=== PATIENT | female | born 1955 | race Caucasian/White ===

== ENCOUNTER 2017-11-19 17:57 | Observation (INO) | payer OTHER, SELFPAY ==
[2017-11-19 18:10] VITALS: BP 122/63; PULSE 75; RESP 14; TEMP 36.2; O2SAT 99
[2017-11-19 18:17] VITALS: PULSE 75; RESP 14; TEMP 36.2; O2SAT 99
[2017-11-19 18:36] VITALS: BP 126/60; PULSE 73; RESP 16; O2SAT 97
--- NOTE | 2017-11-19 18:38 | ED_ITS ---
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 She states she remembered this episode. She states that she knew that she was having problems speaking. She states that she could think of the words and she thought that she was talking but she was told that her words were slurred. She states that the entire event lasted less than 15 min. Denies any other symptoms at the time. Completely resolved afterwards. Patient does have a complicated neurologic history. 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 She states that they follow this tumor and has not changed. She states that her neurologist does not know what the tumor is. She states she was also at that time diagnosed with epilepsy however has not had a seizure since 2005. She is on gabapentin 600 mg 3 times a day. She states she has been weaning down off this medication under the direction of her neurologist. Patient denies ever having a stroke. No cardiac history. Related Data Allergies Allergy/AdvReac Type Severity Reaction Status Date / Time carbamazepine [From Tegretol] Allergy Rash Verified 11/19/17 19:54 erythromycin base AdvReac Vomiting Verified 11/19/17 19:54 Review of Systems Constitutional Denies chills, Denies fever(s), Reports headache(s), Denies lethargy and Denies weakness Eyes Denies change in vision, Denies diplopia, Denies eye discharge, Denies irritation and Denies loss of vision ENT Ears, Nose, Mouth, and Throat: Denies change in voice, Denies dysphagia, Denies vertigo, Denies dizziness, Denies dry mouth, Reports headache(s), Denies hoarseness, Denies disequilibrium, Denies sinus pain, Denies sinus pressure, Denies sore throat and Denies throat swelling Comments: Slurred speech Cardiovascular Denies chest pain, Denies syncope, Denies irregular heart rhythm, Denies lightheadedness, Denies palpitations, Denies dyspnea, Denies dyspnea on exertion and Denies orthopnea Respiratory Denies cough, Denies dyspnea, Denies dyspnea on exertion and Denies wheezing Gastrointestinal Gastrointestinal: Denies dysphagia, Denies diarrhea, Denies nausea and Denies vomiting Genitourinary Denies hematuria, Denies flank pain, Denies urinary incontinence and Denies urinary urgency Musculoskeletal Denies back pain, Denies muscle weakness, Denies numbness and Denies tingling Integumentary/Breasts Denies pruritus, Denies erythema, Denies rash and Denies wounds Neurologic Denies vertigo, Denies dizziness, Denies syncope, Reports headache(s), Denies loss of vision, Denies numbness, Denies tingling, Denies disequilibrium and Denies weakness Endocrine Denies palpitations Hematologic/Lymphatic Denies easy bruising Allergic/Immunologic Denies throat swelling and Denies wheezing Exam Initial Vital Signs Initial Vital Signs: Vital Signs Temperature 97.1 F L 11/19/17 18:10 Pulse Rate 75 11/19/17 18:10 Respiratory Rate 14 11/19/17 18:10 Blood Pressure 122/63 H 11/19/17 18:10 Pulse Oximetry 99 11/19/17 18:10 Const General: cooperative and well developed Nutritional Appearance: well nourished Orientation: alert, awake, oriented x3 and not confused [facility] Head: normocephalic and atraumatic Ears: external ears normal and TM's normal bilaterally Nose: external nose normal and No nasal discharge Face and sinus: sinuses nontender, face symmetric, no sinus tenderness and No dry mucous membranes Mouth: oral mucosae normal and moist mucous membranes Teeth and gingiva: dentition normal Throat: tonsils normal and uvula midline Resp Effort & Inspection: normal respiratory effort, able to speak in complete sentences, no respiratory distress and no use of accessory muscles Auscultation: clear to auscultation bilaterally, no rales, no rhonchi and no wheezes Cardio Rate: regular rate Rhythm: regular rhythm Heart Sounds: no click, no gallops, no murmurs and no rubs Pulses: normal peripheral pulses GI Inspection: non-distended Palpation: soft, no hepatosplenomegaly, No guarding, No pulsatile mass and No tender Auscultation: normal bowel sounds Skin General: no rashes or lesions noted, No jaundice and No petechiae Neuro General: alert, oriented x3, gait normal and no focal motor deficits Cranial Nerves: CN's II-XI intact bilaterally Cognition: normal cognition Speech: speech normal, speech normal, no expressive aphasia and no receptive aphasia Motor: muscle tone normal throughout Sensory Exam: no sensory deficits noted Extrem General: full ROM, no clubbing, cyanosis or edema, no pedal edema and no calf tenderness Course Orders Ordered: ED Orders 11/19/17 18:39 CT head/brain wo con Stat 11/19/17 19:00 EKG-12 Lead Stat 11/19/17 19:10 Basic Metabolic Panel Stat Complete Blood Count AUTO DIFF Stat Partial Thromboplastin Time Stat Prothrombin Time INR Stat Discontinued Medications Aspirin (Aspirin Ec) 325 mg PO NOW ONE Stop: 11/19/17 18:40 Last Admin: 11/19/17 19:53 Dose: Aspirin (Aspirin Chew) 324 mg PO NOW ONE Stop: 11/19/17 19:53 Last Admin: 11/19/17 19:52 Dose: 324 mg Vital Signs - 8 hr 11/19/17 18:10 11/19/17 18:17 11/19/17 18:36 Temperature 97.1 F L 97.1 F L Pulse Rate 75 75 73 Respiratory Rate 14 14 16 Blood Pressure [Left Arm] 122/63 H 126/60 H Pulse Oximetry 99 99 97 11/19/17 19:39 Temperature 97.9 F Pulse Rate 79 Respiratory Rate 16 Blood Pressure [Left Arm] 106/50 L Pulse Oximetry 100 MDM - Altered Mental Status Lab Data Attestation: I reviewed the patient's lab results. Result diagrams: 11/19/17 19:10 11/19/17 19:10 Lab Results 11/19/17 11/19/17 11/19/17 Range/Units 19:10 19:10 19:10 WBC 9.1 (4.5-11.0) X10^3/uL RBC 5.16 (4.0-5.2) X10^6/uL Hgb 15.9 (12.0-16.0) g/dL Hct 46.5 H (36-46) % MCV 90.1 (80-100) fL MCH 30.8 (26-34) PG MCHC 34.2 (30-36) % RDW 13.6 (11.6-14.8) % Plt Count 295 (150-400) X10^3/uL Neut % (Auto) 62.5 (50-75) % Lymph % (Auto) 28.9 (25-40) % Stewart % (Auto) 4.2 (3-14) % Eos % (Auto) 3.3 (2-4) % Baso % (Auto) 1.1 (0-2) % Neut # (Auto) 5700 (7891-7558) /uL PT 11.3 (10.1-12.7) SECONDS INR 1.0 (0.9-1.3) APTT 36 (26.4-36.2) SECONDS Sodium 141 (137-145) mmol/L Potassium 3.8 (3.4-5.1) mmol/L Chloride 102 (98-107) mmol/L Carbon Dioxide 28 (22-32) mmol/L BUN 10 (7-17) mg/dL Creatinine 0.40 L (0.52-1.04) mg/dL Estimated GFR > 60.0 (>60) mL/min BUN/Creatinine Ratio 25.0 H (6-22) Glucose 100 (80-110) mg/dL Calcium 9.2 (8.4-10.2) mg/dL Imaging Data CT scan - head: Radiologist's impression: PROCEDURE: CT HEAD/BRAIN WO CON INDICATIONS: TIA TECHNIQUE: Noncontrast 4.5 mm thick angled axial sections acquired from the foramen magnum to the vertex, with coronal and sagittal reformats. For radiation dose reduction, the following was used: automated exposure control, adjustment of mA and/or kV according to patient size. COMPARISON: None. FINDINGS: Image quality: Excellent. CSF spaces: Basal cisterns are patent. No extra-axial fluid collections. The ventricles are symmetric in size and shape. Brain: No intracranial bleeds or masses. There is cerebral volume loss for age , with resultant ventricular and sulcal prominence. There are periventricular and deep white matter chronic small vessel ischemic changes. There is intracranial internal carotid artery atherosclerosis. Skull and face: Calvarium and visualized facial bones appear intact, without suspicious lesions. Sinuses: Visualized sinuses and mastoids are clear. IMPRESSION: No acute intracranial abnormality. Dictated by: Cj Erickson M.D. on 11/19/2017 at 19:54 ECG Data Attestation: I personally reviewed and interpreted this ECG as follows: Prior ECG tracings: not available for review Interpretation: Sinus rhythm Ventricular rate is 62 Normal axis Normal intervals Normal QRS No ST T wave changes MDM Narrative Medical decision making narrative: Patient with history and physical exam concerning for TIA. Has a normal neurologic exam currently. Patient was given an aspirin here in the emergency department. The symptoms that she describes were not consistent with a seizure. She states she has not had a seizure since 2005. The brain tumor that the patient states she was diagnosed with back in 2003 was not seen on the head CT today. I did discuss this with the patient. Discussed patient with Dr. Argueta who admit under observation status for TIA workup. Discharge Plan Departure Patient Disposition: Admitted as Observation Clinical Impression: Brain TIA
[2017-11-19 19:21] LABS: Add Manual Diff / Slide Review NO; Basophils Percent Auto 1.1 % (0-2); Eosinophils Percent Auto 3.3 % (2-4); Hematocrit 46.5 % (36-46); Hemoglobin 15.9 g/dL (12.0-16.0); Lymphocytes Percent Auto 28.9 % (25-40); Mean Corpuscular HGB Conc 34.2 % (30-36); Mean Corpuscular Hemoglobin 30.8 PG (26-34); Mean Corpuscular Volume 90.1 fL (80-100); Monocytes Percent Auto 4.2 % (3-14); Neutrophils Absolute Auto 5700 /uL (3000-5900); Neutrophils Percent Auto 62.5 % (50-75); Platelet Count 295 X10^3/uL (150-400); Red Blood Cell Count 5.16 X10^6/uL (4.0-5.2); Red Cell Distribution Width 13.6 % (11.6-14.8); White Blood Cell Count 9.1 X10^3/uL (4.5-11.0)
[2017-11-19 19:26] LABS: Prothrombin Time 11.3 SECONDS (10.1-12.7)
[2017-11-19 19:29] LABS: PTT Partial Thromboplastin Tim 36 SECONDS (26.4-36.2)
[2017-11-19 19:37] LABS: Blood Urea Nitrogen 10 mg/dL (7-17); Calcium 9.2 mg/dL (8.4-10.2); Carbon Dioxide 28 mmol/L (22-32); Chloride 102 mmol/L (98-107); Estimated Glomerular Filt Rate > 60.0 mL/min (>60); Glucose 100 mg/dL (80-110); HEMOLYSIS 34 (0-50); Potassium 3.8 mmol/L (3.4-5.1); Sodium 141 mmol/L (137-145)
[2017-11-19 19:39] VITALS: BP 106/50; PULSE 79; RESP 16; TEMP 36.6; O2SAT 100
[2017-11-19] MEDS: ASPIRIN 81 MG TAB 324 MG PO (19:52)
[2017-11-19 21:24] VITALS: BMI 21.2
[2017-11-19 21:25] VITALS: BP 118/78; PULSE 67; RESP 16; TEMP 36.8; O2SAT 96
[2017-11-19] MEDS: SODIUM CHLORIDE 0.9% 1,000 ML 100 ML IV (22:35)
[2017-11-20 00:40] VITALS: BP 104/57; PULSE 66; RESP 18; TEMP 36.6; O2SAT 98
--- NOTE | 2017-11-20 02:11 | PC.NURSE ---
assumed care of pt from outgoing shift at 2300, 6-1. rn reported pt arrived around 950, admission completed. pt complaint. pt given instructions to call staff and wait. pt compliant will continue to monitor pt for safety. pt asleep at this time. bed alarm on side rails up c2. 0050 update: pt assessment completed and charted. pt uses call light, complaint. pt up to br. pt ambulates steady gait. pt NIH 0 a this time, will continue to monitor. educated on strokes and hospital stay. bed alarm on. side rail up x2. pt belongings and call light within reach.
[2017-11-20 06:31] LABS: Cholesterol 234 mg/dL (140-199); HDL Cholesterol 42 mg/dL (40-60); LDL Cholesterol Calculated 138 mg/dL (<100); Triglycerides 268 mg/dL (35-150)
[2017-11-20 07:40] VITALS: O2SAT 94
[2017-11-20 08:24] VITALS: BP 118/73; PULSE 75; RESP 18; TEMP 36.5; O2SAT 96
[2017-11-20] MEDS: ENOXAPARIN 40 MG/0.4 ML SYRINGE SUBCUT (08:46)
[2017-11-20] MEDS: ASPIRIN EC 81 MG TABLET PO (08:46)
[2017-11-20] MEDS: SODIUM CHLORIDE 0.9% 1,000 ML 100 ML IV (08:46)
--- NOTE | 2017-11-20 10:34 | P.HP_ITS ---
History of Present Illness Chief complaint: Brain TIA Narrative: Lexi Vincent is a 61 year old female presents after an episode where she had some difficulty with speech. 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 She has a complicated history of previous seizures and history of diagnosis of a brain tumor back about 10 15 years ago. She is followed by Neurology she is on seizure medications. She has not had a seizure for several years however. No history of hypertension she does have hyperlipidemia. Patient History Medical History Epilepsy (Acute) Hx of (Acute) PTSD (post-traumatic stress disorder) (Acute) Pneumonia (Acute) Glioma (Acute) Family & Social History Social History: household members friend(s) Prior Living Arrangements House Safety & Behavioral: Feels Safe in Current No Environment Been Physically Hurt or No Threatened By a Person Suicidal Ideation Description None Suicide Plan Description No Plan Tobacco & Substance use: Tobacco type cigarettes,cannabis/marijuana Smoking Status Former smoker Smoking packs per day 0.5 alcohol intake never Substance Use Type marijuana Meds Home Medications Medication Instructions Recorded Confirmed Type gabapentin 600 mg PO TID 11/19/17 11/19/17 History simvastatin 40 mg PO QPM 11/19/17 11/19/17 History thyroid (pork) [OIL TESTER Thyroid] 90 mg PO DAILY 11/19/17 11/19/17 History valacyclovir 500 mg PO PRN PRN 11/19/17 11/19/17 History Allergies Allergy/AdvReac Type Severity Reaction Status Date / Time carbamazepine [From Tegretol] Allergy Rash Verified 11/19/17 19:54 erythromycin base AdvReac Vomiting Verified 11/19/17 19:54 Review of Systems Review of Systems All systems reviewed & are unremarkable except as noted in HPI and below Exam Vital Signs (past 8 hours): Vital Signs - 8 hr 3 11/20/17 08:24 Temperature 97.7 F Pulse Rate 75 Respiratory Rate 18 Blood Pressure 118/73 Pulse Oximetry 96 Pulse Oximetry 96 Oxygen Delivery Method Room Air Oxygen Flow Rate 0 Narrative Exam Narrative: Pleasant middle-aged female no acute distress HEENT exam unremarkable Neck is supple Lungs clear Heart regular rhythm Abdomen soft Neuro exam awake alert oriented speech normal no focal motor or sensory deficits Objective Labs Result Diagrams: 11/19/17 19:10 11/19/17 19:10 Labs: Laboratory Results - last 24 hr 11/19/17 11/19/17 11/19/17 19:10 19:10 19:10 WBC 9.1 RBC 5.16 Hgb 15.9 Hct 46.5 H MCV 90.1 MCH 30.8 MCHC 34.2 RDW 13.6 Plt Count 295 Neut % (Auto) 62.5 Lymph % (Auto) 28.9 White % (Auto) 4.2 Eos % (Auto) 3.3 Baso % (Auto) 1.1 Neut # (Auto) 5700 PT 11.3 INR 1.0 APTT 36 Sodium 141 Potassium 3.8 Chloride 102 Carbon Dioxide 28 BUN 10 Creatinine 0.40 L Estimated GFR > 60.0 BUN/Creatinine Ratio 25.0 H Glucose 100 Calcium 9.2 Triglycerides Cholesterol LDL Cholesterol, Calc HDL Cholesterol 11/20/17 05:52 WBC RBC Hgb Hct MCV MCH MCHC RDW Plt Count Neut % (Auto) Lymph % (Auto) White % (Auto) Eos % (Auto) Baso % (Auto) Neut # (Auto) PT INR APTT Sodium Potassium Chloride Carbon Dioxide BUN Creatinine Estimated GFR BUN/Creatinine Ratio Glucose Calcium Triglycerides 268 H Cholesterol 234 H LDL Cholesterol, Calc 138 H HDL Cholesterol 42 Assessment & Plan Plan: Plan: One. TIA or possible partial seizure. She has been observed her overnight at this point is stable I do not think she needs to be in the hospital any longer. I will start her on aspirin and instructed her to get back on her cholesterol medication which she had ran out of. She will follow up with her primary care doctor. I would suggest that she have a carotid ultrasound which will be scheduled as an outpatient. Quality VTE Deep Vein Thrombosis/Pulmonary Embolism Present on Admission: No
--- NOTE | 2017-11-20 11:38 | PC.NURSE ---
DISCHARGED BY MD AT [facility]. IV REMOVED. PT DRESSED. EDUCATION PROVIDED ON S/S OF STROKE, DI FOR TIA, TIA HANDOUT. OUTPATIENT ORDER GIVEN FOR CAROTID DOPPLER U/S TO BE COMPLETED WITHIN 1 WEEK. PT VERBALIZED UNDERSTANDING OF ALL. PT VERBALIZED SHE WILL MAKE DIETARY CHANGES AND START TAKING HER PRESCRIBED STATIN TO REDUCE HER CHOLESTEROL LEVEL. PT AMBULATED OUT OF HOSPITAL TO PERSONAL VEHICLE BY [employer]. DECLINED OFFER OF W/C. PT LEFT IN STABLE CONDITION.
--- NOTE | 2017-11-20 15:11 | CM.DANOTE ---
Home today w/dtr. Pt getting ready to leave when this RN OPERATING ROOM entered room. family to transport. Pt indp, works, extensive h/o neurologic f/u d/t diagnosis of brain cancer years ago. Pt expects not to drive for awhile d/t h/o seizures and wonders if this was a seizure vs TIA ? KAROLINE Dumont assisting w/DC instructions. JLathaW
== END 2017-11-20 11:30 | disposition home or self-care (01) ==
LOC: ED 20:31 → AC 21:06
PROVIDERS: Admitting Provider Internal Medicine; Emergency Provider Emergency Medicine; PCP Registered Nurse; Visit Provider Internal Medicine
DX: R41.82 Altered mental status, unspecified (principal); G40.909 Epilepsy, unspecified, not intractable, without status epilepticus; E78.5 Hyperlipidemia, unspecified; F43.11 Post-traumatic stress disorder, acute; Z79.84 Long term (current) use of oral hypoglycemic drugs
CPT/HCPCS: 36415; 36591; 70450; 80048; 80061; 85025; 85610; 85730; 93005; 99283; 99284; G0378; J1650